=== PATIENT | male | born 1970 | race Caucasian/White ===

== ENCOUNTER 2017-11-29 11:17 | Emergency (ER) | payer BC ==
[2017-11-29 11:28] VITALS: TEMP 98.7
[2017-11-29] MEDS ORDERED: SODIUM CHLORIDE 0.9% 500 ML IV STA (11:52)
--- NOTE | 2017-11-29 11:55 | ED ---
General Adult HPI - General Chief complaint: Abdominal Pain Stated complaint: LOWER RT ABDOMINAL PAIN Time Seen by Provider: 11/29/17 11:25 Source: patient, RN notes reviewed Mode of arrival: ambulatory Limitations: no limitations - History of Present Illness Initial comments: This 47-year-old male who presents emergency Department complaining of right lower quadrant abdominal pain that started yesterday 4 PM. Patient states since then he has not eaten. Patient denies any nausea or vomiting patient denies any diarrhea. Patient denies any fever or chills. Patient states it hurts worse if he is up and walking around. Patient states bending over increases the pain but standing is about a 3 out of 10. Patient states pressing on the right lower quadrant also causes pain. Patient denies any dysuria hematuria urinary frequency. Patient denies any upper abdominal pain. Patient denies any difficulty breathing or shortness of breath. - Related Data Allergies Allergy/AdvReac Type Severity Reaction Status Date / Time No Known Allergies Allergy Verified 11/29/17 11:28 Review of Systems ROS Statement: Those systems with pertinent positive or pertinent negative responses have been documented in the HPI. ROS Other: All systems not noted in ROS Statement are negative. Past Medical History Additional Past Medical History / Comment(s): hernia History of Any Multi-Drug Resistant Organisms: None Reported Past Surgical History: Orthopedic Surgery Additional Past Surgical History / Comment(s): right knee scope Past Psychological History: No Psychological Hx Reported Smoking Status: Never smoker Past Alcohol Use History: None Reported Past Drug Use History: None Reported General Exam - General Exam Comments Initial Comments: GENERAL: Patient is well-developed and well-nourished. Patient is nontoxic and well- hydrated and is in mild distress. ENT: Neck is soft and supple. No significant lymphadenopathy is noted. Oropharynx is clear. Moist mucous membranes. Neck has full range of motion without eliciting any pain. EYES: The sclera were anicteric and conjunctiva were pink and moist. Extraocular movements were intact and pupils were equal round and reactive to light. Eyelids were unremarkable. PULMONARY: Unlabored respirations. Good breath sounds bilaterally. No audible rales rhonchi or wheezing was noted. CARDIOVASCULAR: There is a regular rate and rhythm without any murmurs gallops or rubs. ABDOMEN: Right lower quadrant abdominal pain SKIN: Skin is clear with no lesions or rashes and otherwise unremarkable. NEUROLOGIC: Patient is alert and oriented x3. Cranial nerves II through XII are grossly intact. Motor and sensory are also intact. Normal speech, volume and content. Symmetrical smile. MUSCULOSKELETAL: Normal extremities with adequate strength and full range of motion. No lower extremity swelling or edema. No calf tenderness. LYMPHATICS: No significant lymphadenopathy is noted PSYCHIATRIC: Normal psychiatric evaluation. Limitations: no limitations Course Vital Signs 11/29/17 11:24 Temperature 98.7 F Pulse Rate 82 Respiratory 18 Rate Blood Pressure 144/82 O2 Sat by Pulse 97 Oximetry Medical Decision Making - Medical Decision Making CAT scan of the abdomen showed ventral hernia no signs of incarceration no other abnormalities are noted. - Lab Data Result diagrams: 11/29/17 12:00 11/29/17 12:00 Lab Results 11/29/17 11/29/17 11/29/17 Range/Units 12:00 12:00 12:00 WBC 7.7 (3.8-10.6) k/uL RBC 5.10 (4.30-5.90) m/uL Hgb 14.5 (13.0-17.5) gm/dL Hct 44.8 (39.0-53.0) % MCV 87.8 (80.0-100.0) fL MCH 28.4 (25.0-35.0) pg MCHC 32.3 (31.0-37.0) g/dL RDW 13.0 (11.5-15.5) % Plt Count 274 (150-450) k/uL Neutrophils % 70 % Lymphocytes % 21 % Monocytes % 6 % Eosinophils % 1 % Basophils % 0 % Neutrophils # 5.5 (1.3-7.7) k/uL Lymphocytes # 1.6 (1.0-4.8) k/uL Monocytes # 0.4 (0-1.0) k/uL Eosinophils # 0.1 (0-0.7) k/uL Basophils # 0.0 (0-0.2) k/uL Sodium 141 (137-145) mmol/L Potassium 4.2 (3.5-5.1) mmol/L Chloride 107 (98-107) mmol/L Carbon Dioxide 24 (22-30) mmol/L Anion Gap 10 mmol/L BUN 14 (9-20) mg/dL Creatinine 0.71 (0.66-1.25) mg/dL Est GFR (CKD-EPI)AfAm >90 (>60 ml/min/1.73 sqM) Est GFR (CKD-EPI)NonAf >90 (>60 ml/min/1.73 sqM) Glucose 100 H (74-99) mg/dL Calcium 8.8 (8.4-10.2) mg/dL Total Bilirubin 1.1 (0.2-1.3) mg/dL AST 22 (17-59) U/L ALT 40 (21-72) U/L Alkaline Phosphatase 48 (38-126) U/L Total Protein 6.9 (6.3-8.2) g/dL Albumin 4.0 (3.5-5.0) g/dL Amylase 41 (30-110) U/L Lipase 52 (23-300) U/L Urine Color Yellow Urine Appearance Clear (Clear) Urine pH 5.5 (5.0-8.0) Ur Specific Onward 1.026 (1.001-1.035) Urine Protein Trace H (Negative) Urine Glucose (UA) Negative (Negative) Urine Ketones Negative (Negative) Urine Blood Negative (Negative) Urine Nitrite Negative (Negative) Urine Bilirubin Negative (Negative) Urine Urobilinogen <2.0 (<2.0) mg/dL Ur Leukocyte Esterase Negative (Negative) Disposition Clinical Impression: Abdominal pain Disposition: HOME SELF-CARE Instructions: Abdominal Pain (ED) Is patient prescribed a controlled substance at d/c from ED?: No Referrals: Osorio Cotto MD [Primary Care Provider] - 1-2 days Time of Disposition: 13:55
[2017-11-29 12:12] LABS: Appearance,Urine Clear (Clear); Basophils % (A) 0 %; Bilirubin,Urine Negative (Negative); Blood,Urine Negative (Negative); Color,Urine Yellow; Eosinophils # (A) 0.1 k/uL (0-0.7); Eosinophils % (A) 1 %; Glucose,Urine (UA) Negative (Negative); HCT 44.8 % (39.0-53.0); HGB 14.5 gm/dL (13.0-17.5); Ketones,Urine Negative (Negative); Leukocyte Esterase,Urine Negative (Negative); Lymphocytes # (A) 1.6 k/uL (1.0-4.8); Lymphocytes % (A) 21 %; MCH 28.4 pg (25.0-35.0); MCHC 32.3 g/dL (31.0-37.0); MCV 87.8 fL (80.0-100.0); Mean Platelet Volume 6.3; Monocytes # (A) 0.4 k/uL (0-1.0); Monocytes % (A) 6 %; Neutrophils # (A) 5.5 k/uL (1.3-7.7); Neutrophils % (A) 70 %; Nitrite,Urine Negative (Negative); PH, Urine 5.5 (5.0-8.0); Platelet Count 274 k/uL (150-450); Protein,Urine Trace (Negative); Specific Gravity,Urine 1.026 (1.001-1.035); Urobilinogen,Urine <2.0 mg/dL (<2.0); WBC 7.7 k/uL (3.8-10.6)
[2017-11-29 12:23] LABS: ALT 40 U/L (21-72); AST 22 U/L (17-59); Alkaline Phosphatase 48 U/L (38-126); Amylase 41 U/L (30-110); Anion Gap 10 mmol/L; Blood Urea Nitrogen 14 mg/dL (9-20); Calcium 8.8 mg/dL (8.4-10.2); Carbon Dioxide 24 mmol/L (22-30); Chloride 107 mmol/L (98-107); Glucose 100 mg/dL (74-99); Lipase 52 U/L (23-300); Potassium 4.2 mmol/L (3.5-5.1); Sodium 141 mmol/L (137-145); Total Bilirubin 1.1 mg/dL (0.2-1.3); Total Protein 6.9 g/dL (6.3-8.2)
--- NOTE | 2017-11-29 13:51 | CT ---
EXAMINATION TYPE: CT abdomen pelvis w con DATE OF EXAM: 11/29/2017 COMPARISON: None HISTORY: Pain CONTRAST: Isovue 300/100 ml. Contrast-enhanced CT of the abdomen and pelvis was performed. GI contrast also administered. FINDINGS: LUNG BASES-: No visible nodule. No infiltrate. LIVER/GB: No calcified gallstones. Is evidence of mild hepatic steatosis. No space occupying hepat ic lesion. Biliary tree is of normal caliber. PANCREAS: No inflammation. No distinct mass. SPLEEN: No splenic enlargement. No lesion seen. ADRENALS: No nodule. No thickening. KIDNEYS/BLADDER: No hydronephrosis. No nephrolithiasis. No distinct renal mass. Urinary bladder g rossly unremarkable. BOWEL: Normal appendix. Normal bowel caliber. No inflammation. GENITAL ORGANS: No gross abnormality. LYMPH NODES: No greater than 1cm abdominal or pelvic lymph nodes are appreciated. AORTA: No significant abnormality. OSSEOUS STRUCTURES: No significant abnormality is seen. OTHER: Fat-containing anterior abdominal wall hernia measuring 11.3 x 6.0 cm. IMPRESSION: 1. Fat-containing anterior abdominal wall hernia measuring 11.3 x 6.0 cm.
[2017-11-29 14:16] VITALS: BP 148/70; PULSE 66; RESP 16
== END 2017-11-29 14:16 | disposition home or self-care (01) ==
LOC: EC 11:17
DX: K43.9 Ventral hernia without obstruction or gangrene (principal)
CPT/HCPCS: 36415; 80053; 82150; 83690; 85025; 81003; 74177; 99284; 96360; Q9967

== ENCOUNTER → 2018-01-03 | Outpatient (CLI) | payer BC | END | disposition home or self-care (01) | LOC: LABPAT 12:46 | PROVIDERS: ATTEND Surgery Plastic and Reconstructive Surgery | DX: Z01.810 Encounter for preprocedural cardiovascular examination (principal) | CPT/HCPCS: 93005 ==

== ENCOUNTER → 2018-01-03 | Outpatient (CLI) | payer BC ==
[2018-01-03 14:41] LABS: HCT 44.2 % (39.0-53.0); HGB 14.6 gm/dL (13.0-17.5); MCH 29.5 pg (25.0-35.0); MCV 89.3 fL (80.0-100.0); Mean Platelet Volume 6.6; Platelet Count 284 k/uL (150-450); RBC 4.95 m/uL (4.30-5.90); RDW 13.2 % (11.5-15.5); WBC 6.1 k/uL (3.8-10.6)
[2018-01-03 14:42] LABS: Appearance,Urine Clear (Clear); Bilirubin,Urine Negative (Negative); Blood,Urine Negative (Negative); Color,Urine Yellow; Glucose,Urine (UA) Negative (Negative); Ketones,Urine Negative (Negative); Leukocyte Esterase,Urine Negative (Negative); Nitrite,Urine Negative (Negative); PH, Urine 6.5 (5.0-8.0); Protein,Urine Negative (Negative); Specific Gravity,Urine 1.013 (1.001-1.035); Urobilinogen,Urine <2.0 mg/dL (<2.0)
[2018-01-03 14:54] LABS: ALT 37 U/L (21-72); AST 16 U/L (17-59); Albumin 4.1 g/dL (3.5-5.0); Alkaline Phosphatase 44 U/L (38-126); Anion Gap 10 mmol/L; Blood Urea Nitrogen 11 mg/dL (9-20); Carbon Dioxide 26 mmol/L (22-30); Chloride 104 mmol/L (98-107); Cholesterol 157 mg/dL (<200); Glucose 93 mg/dL (74-99); HDL Cholesterol 42 mg/dL (40-60); LDL Cholesterol,Calculated 84 mg/dL (0-99); Potassium 4.1 mmol/L (3.5-5.1); Sodium 140 mmol/L (137-145); Total Bilirubin 1.3 mg/dL (0.2-1.3); Triglycerides 155 mg/dL (<150)
== END | disposition home or self-care (01) ==
LOC: LABWHC1 12:50
PROVIDERS: ATTEND Family Medicine
DX: Z00.00 Encounter for general adult medical examination without abnormal findings (principal)
CPT/HCPCS: 36415; 80053; 80061; 81003; 85027

== ENCOUNTER → 2018-02-27 | Outpatient (CLI) | payer BC ==
[2018-02-27 09:46] LABS: HCT 46.9 % (39.0-53.0); HGB 15.2 gm/dL (13.0-17.5); MCH 28.6 pg (25.0-35.0); MCHC 32.5 g/dL (31.0-37.0); Platelet Count 280 k/uL (150-450); RBC 5.33 m/uL (4.30-5.90); RDW 13.3 % (11.5-15.5); WBC 6.3 k/uL (3.8-10.6)
== END | disposition home or self-care (01) ==
LOC: LABPAT 08:26
PROVIDERS: ATTEND Anesthesiology
DX: Z01.812 Encounter for preprocedural laboratory examination (principal); K43.2 Incisional hernia without obstruction or gangrene
CPT/HCPCS: 36415; 85027

== ENCOUNTER → 2018-03-01 | Day surgery (SDC) | payer BC ==
[2018-02-26 15:16] VITALS: BMI 42.0
[~2018-03-01] MED LIST: BUPIVACAIN-EPI 0.25%-1:200,000 30 ML VIAL SQ ONE; DEXAMETHASONE SOD PHOSPHATE 10 MG/ML 1 ML VIAL IV ONE; GLYCOPYRROLATE 0.2 MG/ML 2 ML VIAL ONE; HEPARIN SODIUM,PORCINE 5,000 UNIT/ML 1 ML VIAL SQ ONE; HYDROcodone/APAP 7.5-325MG 1 EACH TAB PO ONE; HYDROmorphone (PF) 1 MG/ML ONE; KETOROLAC 30 MG/ML 1 ML VIAL ONE; LACTATED RINGERS 1,000 ML IV ONE; LIDOCAINE 1% 20 ML VIAL (10MG/ML) FOR IV START INTRADERMA PRN; LIDOCAINE 1% INJ 10MG/ML (20 ML MDV) ONE; MIDAZOLAM 2 MG/2 ML VIAL IV PRN; MIDAZOLAM 2 MG/2 ML VIAL ONE; NEOSTIGMINE 1 MG/ML 10 ML VIAL ONE; ONDANSETRON 4 MG/2 ML VIAL IVP ONE; PROPOFOL 10 MG/ML 20 ML VIAL IV ONE; ROCURONIUM BROMIDE 10 MG/ML 10 ML VIAL IV ONE; ROPIVACAINE 5 MG/ML 30 ML VIAL ONE; SCOPOLAMINE 1.5MG/72HR PATCH TRANSDERM ONE; SUCCINYLCHOLINE CHLORIDE VIAL 200 MG/10 ML VIAL IV ONE; fentaNYL (PF) 50 MCG/ML 2 ML AMP ONE
[2018-03-01 14:30] VITALS: RESP 16
--- NOTE | 2018-03-01 14:59 | P.GSHP ---
History of Present Illness H&P Date: 03/01/18 CHIEF COMPLAINT: Ventral hernia HISTORY OF PRESENT ILLNESS: The patient is a 47-year-old male who presents with a history of swelling and pain along the abdomen from a hernia. Now he presents for surgical intervention. PAST MEDICAL HISTORY: Please see list. PAST SURGICAL HISTORY: Please see list. MEDICATIONS: Please see list. ALLERGIES: Please see list. SOCIAL HISTORY: No illicit drug use FAMILY HISTORY: No reports of Crohn disease or ulcerative colitis. REVIEW OF ORGAN SYSTEMS: CONSTITUTIONAL: No reports of fevers or chills. No reports of weight loss despite prior attempts. GI: Denies any blood in stools or constipation. PHYSICAL EXAM: VITAL SIGNS: Stable GENERAL: Well-developed pleasant male in no acute distress. HEENT: No scleral icterus. Extraocular movements grossly intact. Moist buccal mucosa. NECK: Supple without lymphadenopathy. CHEST: Unlabored respirations. Equal bilateral excursions. CARDIOVASCULAR: Regular rate and rhythm. Distal 2+ pulses. ABDOMEN: Soft, nondistended. Palpable defect of the abdomen. No peritoneal signs. MUSCULOSKELETAL: No clubbing, cyanosis, or edema. ASSESSMENT: 1. Ventral hernia PLAN: 1. Recommend proceeding with robotic ventral hernia repair with mesh. 2. Benefits and risks of surgical intervention was discussed including possibility of open technique. 3. DVT prophylaxis. 4. Antibiotic prophylaxis. Past Medical History Past Medical History: Sleep Apnea/CPAP/BIPAP Additional Past Medical History / Comment(s): hernia History of Any Multi-Drug Resistant Organisms: None Reported Past Surgical History: Orthopedic Surgery Additional Past Surgical History / Comment(s): right knee scope Past Anesthesia/Blood Transfusion Reactions: No Reported Reaction Additional Past Anesthesia/Blood Transfusion Reaction / Comment(s): no hx blood transfusion Smoking Status: Never smoker - Past Family History Mother Family Medical History: No Reported History Father Family Medical History: Cancer Additional Family Medical History / Comment(s): colon CA,. paternal grandfather CA Medications and Allergies Home Medications Medication Instructions Recorded Confirmed Type No Known Home Medications 02/26/18 03/01/18 History Allergies Allergy/AdvReac Type Severity Reaction Status Date / Time No Known Allergies Allergy Verified 03/01/18 14:30 Surgical - Exam Vital Signs Temp Pulse Resp BP Pulse Ox 97.6 F 70 16 129/63 99 03/01/18 14:29 03/01/18 14:29 03/01/18 14:29 03/01/18 14:29 03/01/18 14:29
[2018-03-01] MEDS: LACTATED RINGERS 1,000 ML IV SCH ×2 (15:20→15:44)
--- NOTE | 2018-03-01 16:28 | P.ONQ ---
Anesthesiology Proc Note - PNB - Peripheral Nerve Block Performed Bilateral Rectus Abdominis Single Time Out Performed: Yes (152) Procedure Start Time: 15: Procedure Stop Time: 15:30 Indication: Acute Post-Operative Pain, Dx/Pain Location (Abdominal Pain), Requested by physician Sedation Type: Sedate with meaningful contact maintained Preparation: Sterile Prep Position: Supine Catheter: None Needle Types: On-Q Needle Size: 100mm (4") Needle Gauge: 21 Technique: Ultrasound Injectate: 0.5% Ropivacaine (see comment for volume) (15ml each side) Blood Aspirated: No Pain Paresthesia on Injection Noted: No Resistance on Injection: Normal Events: Uneventful and Well Tolerated
--- NOTE | 2018-03-01 19:17 | P.OP ---
Date of Procedure: 03/01/18 Description of Procedure: SURGEON: NICHOL WOO MD PREOPERATIVE DIAGNOSES: 1. Incarcerated initial ventral hernia, over 8 cm 2. Morbid obesity due to excess calories, BMI 42.0 3. Obstructive sleep apnea POSTOPERATIVE DIAGNOSES: 1. Incarcerated initial ventral hernia, over 8 cm 2. Morbid obesity due to excess calories, BMI 42.0 3. Obstructive sleep apnea OPERATION: 1. Robotic-assisted da Jose Xi laparoscopic omentectomy 2. Robotic-assisted da Jose Xi laparoscopic repair of 4 cm initial incarcerated ventral hernia mesh, ventralight ST mesh 11.4 cm Anesthesia: GETA, regional, local Estimated Blood Loss (ml): 5 Pathology: other (omentum) Condition: stable Disposition: same day COMPLICATIONS: None. INDICATIONS: The patient is a 47-year-old male who presents with moderate pain and swelling of the abdomen at the umbilicus. He is gone to the emergency room for severe abdominal pain with findings consistent with incarcerated umbilical ventral hernia. Surgical intervention with laparoscopic versus robotic and open techniques were reviewed. Placement of mesh was also reviewed. Benefits and risks were thoroughly described. Informed consent was obtained. DESCRIPTION OF PROCEDURE: The patient was brought into the operating room and laid in supine position. After general induction, the abdomen had been prepped and draped in standard sterile fashion. Ioban draping was also placed. Prior to incision, a timeout protocol was confirmed with surgical team regarding the patient's name including procedures to be performed. The robot was primed prior to the procedure. A field block using local anesthetic was placed along hernia site including the proposed port sites. Initial incision was made with an #11 blade along the left upper quadrant. A 0 degree 5 mm laparoscopic trocar entry was performed and insufflated. Diagnostic laparoscopy demonstrated large omental incarceration at the ventral hernia involving the umbilicus. An 8 mm port was placed along the right upper quadrant under direct localization. The 5- mm port was exchanged for an 8 mm robotic port. Placements of the ports were 15 cm from the target anatomy and approximately 10 cm apart. The [employer] Xi robot was previously primed, prepped and draped then docked along the left side of the patient. I then sat at the robot [employer] Xi console where working arms of the robot including Bovie cautery connected to robotic scissors, vessel sealer, needle hazardous materials tanker driver, and graspers placed by the administrative support assistant. Extensive dissection was performed to reduce the incarcerated greater omentum of the umbilical ventral hernia. Partial omentectomy was performed with complete reduction of the incarcerated hernia site. Subcutaneous pocket was at least 8-10 cm within the skin. The fascial defect size was over 4 cm. The fascial defect was addressed using #1 Stratafix and oversewed using fascial imbrication 3. A 12 mm port was exchanged along the left upper quadrant for placement of the mesh and for sutures. Next, ventralight ST mesh 11.4 cm was placed with the rough side towards the abdominal wall. 2-0 VLOC 12 inch sutures were used to fixate the mesh. A final endoscopic imaging was obtained. All instruments and pneumoperitoneum were evacuated from the abdominal cavity. The da Jose Xi robot was undocked from the patient. I re-scrubbed into the case for closure of incisions. The fascia of the 12-mm port was probed and less than 8-mm in size. The incisions were reapproximated using 4-0 Monocryl in an interrupted subcuticular fashion. Liquid glue was applied to the skin after cleansing the skin with normal saline and dilute hydrogen peroxide. An abdominal binder was placed. At the end of the procedure, needle, sponge, and instrument count had been verified correct by surgical supplies sterilizer. The patient was taken to the postanesthesia care unit in stable condition. Operative Findings: 1. Omentum incarcerated in 4 cm fascial defect with 8-cm subcutaneous pocket involving omentum 2. Right indirect inguinal hernia, 2 cm 3. Port site at left upper quadrant exchanged for 12-mm port for removal of specimen 4. Sukumar Gold closure of fascial defect of left upper quadrant port 5. Console time 67 minutes Plan - Discharge Summary Discharge Rx Participant: No New Discharge Prescriptions: New HYDROcodone/APAP 7.5-325MG [[place] 7.5-325] 1 tab PO Q4H PRN 3 Days #18 tab PRN Reason: Pain Ibuprofen [Motrin] 600 mg PO Q8HR PRN #30 tab PRN Reason: Pain HYDROcodone/APAP 7.5-325MG [[place] 7.5-325] 1 tab PO Q4H PRN 3 Days #18 tab PRN Reason: Pain Discharge Medication List HYDROcodone/APAP 7.5-325MG [[place] 7.5-325] 1 tab PO Q4H PRN 3 Days #18 tab 03/01 [Rx] Ibuprofen [Motrin] 600 mg PO Q8HR PRN #30 tab 03/01/18 [Rx] HYDROcodone/APAP 7.5-325MG [[place] 7.5-325] 1 tab PO Q4H PRN 3 Days #18 tab 03/06 [Rx] Follow up Appointment(s)/Referral(s): Nichol Woo MD [STAFF PHYSICIAN] - 03/06/18 Patient Instructions/Handouts: *Surgery [facility] - (Anesthesia) Discharge Instructions Outpatient Surgery, Laparoscopic Herniorrhaphy (IP), Umbilical Hernia (DC), Abdominal Binder (DC) Activity/Diet/Wound Care/Special Instructions: No lifting over 4 pounds in 4 weeks. May shower. NO BATHTUB SOAKS. Keep dressing at belly button on until seen by surgeon. WEAR ABDOMINAL BINDER ON AT ALL TIMES EXCEPT FOR SHOWERING. Discharge Disposition: HOME SELF-CARE
[2018-03-01 19:29] VITALS: TEMP 98
[2018-03-01] MEDS: HYDROmorphone 1 MG/ML 1 ML SYRINGE IVP PRN ×2 (20:19→20:25)
[2018-03-01 22:20] VITALS: BP 129/81; PULSE 90
== END | disposition home or self-care (01) ==
LOC: OR 13:25
PROVIDERS: ATTEND Surgery Plastic and Reconstructive Surgery
DX: K43.6 Other and unspecified ventral hernia with obstruction, without gangrene (principal); K40.90 Unilateral inguinal hernia, without obstruction or gangrene, not specified as recurrent; E66.01 Morbid (severe) obesity due to excess calories; G47.33 Obstructive sleep apnea (adult) (pediatric); R06.09 Other forms of dyspnea; I45.10 Unspecified right bundle-branch block; Z99.89 Dependence on other enabling machines and devices; Z68.41 Body mass index [BMI] 40.0-44.9, adult
CPT/HCPCS: 49653; 64488; 88305; C1781; J2250; J0330; J1644; J1100; J2710; J2405; J2001; J3010; J1885; J1170; J2795; J2704

== ENCOUNTER 2020-08-24 01:19 | Emergency (ER) | payer BC ==
[2020-08-24 01:30] VITALS: TEMP 97.9
[2020-08-24] MEDS ORDERED: METOPROLOL TARTRATE 5 MG/5 ML VIAL IVP STA (01:34)
[2020-08-24] MEDS ORDERED: SODIUM CHLORIDE 0.9% 1,000 ML IV STA (01:34)
[2020-08-24] MEDS ORDERED: DILTIAZEM 5 MG/ML 5 ML VIAL IVP STA (01:34)
--- NOTE | 2020-08-24 01:35 | ED ---
SOB HPI - General Chief Complaint: Shortness of Breath Stated Complaint: High heart rate Time Seen by Provider: 08/24/20 01:32 Source: patient, family Mode of arrival: ambulatory Limitations: no limitations - Related Data Previous Rx's Medication Instructions Recorded HYDROcodone/APAP 7.5-325MG [[place] 1 tab PO Q4H PRN 3 Days #18 tab 03/01/18 7.5-325] Ibuprofen [Motrin] 600 mg PO Q8HR PRN #30 tab 03/01/18 HYDROcodone/APAP 7.5-325MG [[place] 1 tab PO Q4H PRN 3 Days #18 tab 03/06/18 7.5-325] Cyclobenzaprine [Flexeril] 10 mg PO TID #30 tab 03/15/18 Allergies Allergy/AdvReac Type Severity Reaction Status Date / Time No Known Allergies Allergy Verified 03/01/18 14:30 Review of Systems ROS Statement: Those systems with pertinent positive or pertinent negative responses have been documented in the HPI. ROS Other: All systems not noted in ROS Statement are negative. Past Medical History Past Medical History: Sleep Apnea/CPAP/BIPAP Additional Past Medical History / Comment(s): hernia History of Any Multi-Drug Resistant Organisms: None Reported Past Surgical History: Orthopedic Surgery Additional Past Surgical History / Comment(s): right knee scope Past Anesthesia/Blood Transfusion Reactions: No Reported Reaction Additional Past Anesthesia/Blood Transfusion Reaction / Comment(s): no hx blood transfusion Past Psychological History: No Psychological Hx Reported Smoking Status: Never smoker Past Alcohol Use History: Occasional Past Drug Use History: None Reported - Past Family History Mother Family Medical History: No Reported History Father Family Medical History: Cancer Additional Family Medical History / Comment(s): colon CA,. paternal grandfather CA General Exam Limitations: no limitations Course Vital Signs 08/24/20 08/24/20 08/24/20 01:26 01:45 02:01 Temperature 97.9 F Pulse Rate 162 H 165 H 141 H Respiratory 20 18 16 Rate Blood Pressure 122/89 128/99 145/88 O2 Sat by Pulse 97 99 98 Oximetry 08/24/20 08/24/20 02:05 02:35 Temperature Pulse Rate 77 74 Respiratory 16 14 Rate Blood Pressure 132/81 132/81 O2 Sat by Pulse 99 98 Oximetry Medical Decision Making - Lab Data Result diagrams: 08/24/20 01:56 08/24/20 01:56 Lab Results 08/24/20 08/24/20 08/24/20 Range/Units 01:42 01:56 01:56 WBC 6.5 (3.8-10.6) k/uL RBC 4.91 (4.30-5.90) m/uL Hgb 14.6 (13.0-17.5) gm/dL Hct 43.2 (39.0-53.0) % MCV 87.9 (80.0-100.0) fL MCH 29.7 (25.0-35.0) pg MCHC 33.8 (31.0-37.0) g/dL RDW 12.9 (11.5-15.5) % Plt Count 279 (150-450) k/uL MPV 6.8 Neutrophils % 44 % Lymphocytes % 45 % Monocytes % 6 % Eosinophils % 2 % Basophils % 1 % Neutrophils # 2.9 (1.3-7.7) k/uL Lymphocytes # 2.9 (1.0-4.8) k/uL Monocytes # 0.4 (0-1.0) k/uL Eosinophils # 0.1 (0-0.7) k/uL Basophils # 0.0 (0-0.2) k/uL PT 9.7 (9.0-12.0) sec INR 0.9 (<1.2) APTT 22.4 (22.0-30.0) sec D-Dimer 0.40 (<0.60) mg/L FEU Sodium (137-145) mmol/L Potassium (3.5-5.1) mmol/L Chloride (98-107) mmol/L Carbon Dioxide (22-30) mmol/L Anion Gap mmol/L BUN (9-20) mg/dL Creatinine (0.66-1.25) mg/dL Est GFR (CKD-EPI)AfAm (>60 ml/min/1.73 sqM) Est GFR (CKD-EPI)NonAf (>60 ml/min/1.73 sqM) Glucose (74-99) mg/dL POC Glucose (mg/dL) 161 H (75-99) mg/dL POC Glu Shop Mechanic Helper ID Vikram Bradley Calcium (8.4-10.2) mg/dL Phosphorus (2.5-4.5) mg/dL Magnesium (1.6-2.3) mg/dL Total Bilirubin (0.2-1.3) mg/dL AST (17-59) U/L ALT (4-49) U/L Alkaline Phosphatase (38-126) U/L Creatine Kinase (55-170) U/L Troponin I (0.000-0.034) ng/mL NT-Pro-B Natriuret Pep pg/mL Total Protein (6.3-8.2) g/dL Albumin (3.5-5.0) g/dL TSH (0.465-4.680) mIU/L 08/24/20 08/24/20 08/24/20 Range/Units 01:56 01:56 01:56 WBC (3.8-10.6) k/uL RBC (4.30-5.90) m/uL Hgb (13.0-17.5) gm/dL Hct (39.0-53.0) % MCV (80.0-100.0) fL MCH (25.0-35.0) pg MCHC (31.0-37.0) g/dL RDW (11.5-15.5) % Plt Count (150-450) k/uL MPV Neutrophils % % Lymphocytes % % Monocytes % % Eosinophils % % Basophils % % Neutrophils # (1.3-7.7) k/uL Lymphocytes # (1.0-4.8) k/uL Monocytes # (0-1.0) k/uL Eosinophils # (0-0.7) k/uL Basophils # (0-0.2) k/uL PT (9.0-12.0) sec INR (<1.2) APTT (22.0-30.0) sec D-Dimer (<0.60) mg/L FEU Sodium 140 (137-145) mmol/L Potassium 3.8 (3.5-5.1) mmol/L Chloride 108 H (98-107) mmol/L Carbon Dioxide 25 (22-30) mmol/L Anion Gap 7 mmol/L BUN 16 (9-20) mg/dL Creatinine 0.76 (0.66-1.25) mg/dL Est GFR (CKD-EPI)AfAm >90 (>60 ml/min/1.73 sqM) Est GFR (CKD-EPI)NonAf >90 (>60 ml/min/1.73 sqM) Glucose 157 H (74-99) mg/dL POC Glucose (mg/dL) (75-99) mg/dL POC Glu Shop Mechanic Helper ID Calcium 8.9 (8.4-10.2) mg/dL Phosphorus 3.7 (2.5-4.5) mg/dL Magnesium 2.0 (1.6-2.3) mg/dL Total Bilirubin 0.6 (0.2-1.3) mg/dL AST 24 (17-59) U/L ALT 30 (4-49) U/L Alkaline Phosphatase 63 (38-126) U/L Creatine Kinase 92 (55-170) U/L Troponin I <0.012 (0.000-0.034) ng/mL NT-Pro-B Natriuret Pep 64 pg/mL Total Protein 6.7 (6.3-8.2) g/dL Albumin 3.9 (3.5-5.0) g/dL TSH 2.610 (0.465-4.680) mIU/L - EKG Data -: EKG Interpreted by Me (EKG is SVT 164 QRS 112 QTC 488) EKG shows normal: sinus rhythm (EKG shows sinus rhythm 74 [place] 152 QRS 112 QTc 468) Disposition Clinical Impression: SVT (supraventricular tachycardia), Tachycardia Disposition: HOME SELF-CARE Condition: Good Instructions (If sedation given, give patient instructions): Supraventricular Tachycardia (ED), Tachycardia (ED) Is patient prescribed a controlled substance at d/c from ED?: No Referrals: Osorio Cotto MD [Primary Care Provider] - 1-2 days
[2020-08-24 01:46] LABS: Glucose,Whole Blood 161 mg/dL (75-99)
[2020-08-24 02:10] LABS: Basophils % (A) 1 %; Eosinophils # (A) 0.1 k/uL (0-0.7); Eosinophils % (A) 2 %; HCT 43.2 % (39.0-53.0); HGB 14.6 gm/dL (13.0-17.5); Lymphocytes # (A) 2.9 k/uL (1.0-4.8); Lymphocytes % (A) 45 %; MCH 29.7 pg (25.0-35.0); MCHC 33.8 g/dL (31.0-37.0); MCV 87.9 fL (80.0-100.0); Mean Platelet Volume 6.8; Monocytes # (A) 0.4 k/uL (0-1.0); Monocytes % (A) 6 %; Neutrophils # (A) 2.9 k/uL (1.3-7.7); Neutrophils % (A) 44 %; Platelet Count 279 k/uL (150-450); RBC 4.91 m/uL (4.30-5.90); RDW 12.9 % (11.5-15.5); WBC 6.5 k/uL (3.8-10.6)
[2020-08-24 02:20] LABS: ALT 30 U/L (4-49); AST 24 U/L (17-59); African American GFR (CKD) >90 (>60 ml/min/1.73 sqM); Albumin 3.9 g/dL (3.5-5.0); Alkaline Phosphatase 63 U/L (38-126); Anion Gap 7 mmol/L; Blood Urea Nitrogen 16 mg/dL (9-20); Calcium 8.9 mg/dL (8.4-10.2); Carbon Dioxide 25 mmol/L (22-30); Chloride 108 mmol/L (98-107); Creatine Kinase 92 U/L (55-170); Glucose 157 mg/dL (74-99); Non-African American GFR(CKD) >90 (>60 ml/min/1.73 sqM); Phosphorus 3.7 mg/dL (2.5-4.5); Potassium 3.8 mmol/L (3.5-5.1); Sodium 140 mmol/L (137-145); Total Bilirubin 0.6 mg/dL (0.2-1.3); Total Protein 6.7 g/dL (6.3-8.2)
[2020-08-24 02:34] LABS: D-Dimer 0.4 mg/L FEU (<0.60); INR 0.9 (<1.2); Partial Thromboplastin Time 22.4 sec (22.0-30.0); Prothrombin Time 9.7 sec (9.0-12.0)
[2020-08-24 03:30] VITALS: BP 116/73; RESP 15
[2020-08-24 03:53] VITALS: PULSE 168
== END 2020-08-24 03:28 | disposition home or self-care (01) ==
LOC: EC 01:19
DX: I47.1 Supraventricular tachycardia (principal); G47.30 Sleep apnea, unspecified
CPT/HCPCS: 36415; 80053; 82550; 83735; 83880; 84100; 84443; 84484; 85025; 85379; 85610; 85730; 93005; 96361; 96374; 96375; 99285

== ENCOUNTER → 2020-09-30 | Outpatient (CLI) | payer BC ==
--- NOTE | 2020-09-30 23:00 | CONS ---
CONSULTATION DATE OF SERVICE: 09/30/2020. This 49-year-old gentleman has been evaluated in the sleep center for possible obstructive sleep apnea-hypopnea syndrome. HISTORY OF PRESENT ILLNESS/SLEEP WAKE EVALUATION: Patient had sleep study about 20 years ago in another institution but because he did not fall asleep at that time during the test, test was not conclusive. SLEEP SCHEDULE: Presently, his sleep schedule from 1 a.m. to 6/ 6:30 a.m. on weekdays and from 2 a.m. to 8, 8:30 a.m. on weekends. FALLING ASLEEP: Sometimes he has problems with falling asleep, has TV set in bedroom. DURING SLEEP: Sleeps only on the side or in the chair. He cannot sleep on the bed, feels uncomfortable. He says a loud snoring and witnessed episodes of stopped breathing during sleep. He wakes up from sleep with panic attacks, gasping for air. No history of hypnagogic hallucinations, sleep paralysis or cataplexy. [place] Sleepiness Scale is in very high range of 18. DURING THE DAY/SLEEP WAKE EVALUATION: The patient may take nap around 4:00 pm. PAST MEDICAL HISTORY: Positive for episodes of probably supraventricular tachycardia. PAST SURGICAL HISTORY: Right knee surgery, abdominal hernia repair. MEDICATIONS: Advil on a p.r.n. basis. SOCIAL HISTORY: Smoking positive history of smoking, quit 2 years ago. Alcohol consumption occasional. FAMILY HISTORY: Positive for heart problems, stroke and arthritis. REVIEW OF SYSTEMS: Loud snoring, awakenings from sleep. PHYSICAL EXAMINATION: GENERAL: gentleman without distress. BP 129/88, HR 81, RR 15, height 6 feet 1/4 inch, weight 332.2 pounds with a body mass index of 44.7, temperature 97.5, oxygen saturation at room air 96%. HEENT: Oropharynx extremely low position of soft palate. Mallampati 4. NECK: Supple, no JVD. Thyroid is not palpable. LUNGS: Clear to percussion and to auscultation. Good air exchange. No wheezing or rhonchi. HEART: S1, S2 regular. No murmurs, gallops, or rubs. ABDOMEN: Obese. Soft and nontender. Bowel sounds are present. No organomegaly appreciated. EXTREMITIES: No clubbing or cyanosis. HEMMING AND TACKING MACHINE OPERATOR: Awake, alert, and oriented X3. Cranial nerves 2 to 7 intact. There is no fasciculation or atrophy. noted. No focal deficits observed. IMPRESSION: 1. Loud snoring, episodes of stopped breathing during sleep, extremely low position of soft palate, Mallampati 4, sleepiness, obstructive sleep apnea-hypopnea syndrome. 2. Significantly high [place] Sleepiness Scale dictate necessity to include hypersomnia and narcolepsy in differential diagnosis. 3. Morbid obesity, BMI 44.7. 4. History of cardiac arrhythmia, possibly supraventricular tachycardia by history. 5. Status post right knee surgery. 6. Status post inguinal hernia repair. PLAN: 1. Home sleep apnea test to check patient breathing during sleep. 2. CPAP/BiPAP titration if sleep study confirms obstructive sleep apnea-hypopnea syndrome. 3. Preferable position during sleep on the side. 4. No driving if patient feels any sleepiness. 5. I will see patient for follow up visit to explain results of testing and following plan. Thank you very much for referring this patient for consultation. Sincerely, Darrian Campos MD, PhD, FAASM Diplomat of [place] [employer] [place] [employer] Certified Nurse Practitioner of [facility] [place] MMODL / IJN: [id number] /
== END ==
LOC: SLEEP 15:20
PROVIDERS: ATTEND Internal Medicine
DX: G47.33 Obstructive sleep apnea (adult) (pediatric) (principal); E66.01 Morbid (severe) obesity due to excess calories; Z68.41 Body mass index [BMI] 40.0-44.9, adult; Z98.890 Other specified postprocedural states; Z86.79 Personal history of other diseases of the circulatory system; Z87.891 Personal history of nicotine dependence
CPT/HCPCS: 99211

== ENCOUNTER 2021-06-16 17:29 | Emergency (ER) | payer BC ==
[2021-06-16 18:30] VITALS: BP 158/91; PULSE 78; RESP 18; TEMP 98.2
--- NOTE | 2021-06-16 18:58 | ED ---
Head Injury HPI - General Chief complaint: Head Injury Stated complaint: Fall, Head Injury, Momentary loss of consciousness Time Seen by Provider: 06/16/21 18:34 Source: patient, RN notes reviewed Mode of arrival: ambulatory - History of Present Illness Initial comments: This is a pleasant 50-year-old male with a history of sleep apnea. Patient presents to the emergency department complaining of right-sided jaw pain near the TMJ. Patient states he slipped on ice at 6:30 AM this morning and struck the back of his head. He was momentarily dazed but did not lose consciousness. He recalls the entire event. No amnesia. Patient has had no nausea or vomiting. Patient states that he was dazed momentarily but the symptoms resolved rather quickly. He has no headache. However patient is complaining of pain to the right TMJ which is exacerbated when he goes to bite down. He states this is quite a bit of discomfort. He denies any other injuries. No blood th inners. No headache, no fever or chills, no changes in vision or hearing, no sore throat or difficulty with speech, no neck pain, no chest pain or shortness of breath, no abdominal pain, no nausea or vomiting, no changes in urination or bowel movements, no numbness or tingling, no gait disturbance, no extremity pain, no skin rashes or lesions. Patient has no history of blood dyscrasias. Does not take daily aspirin. - Related Data Previous Rx's Medication Instructions Recorded HYDROcodone/APAP 7.5-325MG [[place] 1 tab PO Q4H PRN 3 Days #18 tab 03/01/18 7.5-325] Ibuprofen [Motrin] 600 mg PO Q8HR PRN #30 tab 03/01/18 HYDROcodone/APAP 7.5-325MG [[place] 1 tab PO Q4H PRN 3 Days #18 tab 03/06/18 7.5-325] Cyclobenzaprine [Flexeril] 10 mg PO TID #30 tab 03/15/18 Allergies/Adverse reactions: Allergies Allergy/AdvReac Type Severity Reaction Status Date / Time No Known Allergies Allergy Verified 06/16/21 18:29 Review of Systems ROS Statement: Those systems with pertinent positive or pertinent negative responses have been documented in the HPI. ROS Other: All systems not noted in ROS Statement are negative. Past Medical History Past Medical History: Sleep Apnea/CPAP/BIPAP Additional Past Medical History / Comment(s): hernia History of Any Multi-Drug Resistant Organisms: None Reported Past Surgical History: Hernia Repair, Orthopedic Surgery Additional Past Surgical History / Comment(s): right knee scope Past Anesthesia/Blood Transfusion Reactions: No Reported Reaction Additional Past Anesthesia/Blood Transfusion Reaction / Comment(s): no hx blood transfusion Past Psychological History: No Psychological Hx Reported Smoking Status: Never smoker Past Alcohol Use History: Occasional Past Drug Use History: None Reported - Past Family History Mother Family Medical History: No Reported History Father Family Medical History: Cancer Additional Family Medical History / Comment(s): colon CA,. paternal grandfather CA General Exam - General Exam Comments Initial Comments: Healthy-appearing 50-year-old male who does have some obesity. In no distress. Cranial nerves II through XII are intact. Patient is alert and oriented 4. Does not appear to be ill or toxic. [place] Coma Scale is 15. Limitations: no limitations General appearance: alert, in no apparent distress Head exam: Present: other (Superficial abrasion noted over the occipital region. No tenderness. No step-off. No crepitus. Head is normocephalic atraumatic other than the right TMJ--which is described below) Eye exam: Present: normal appearance, PERRL, EOMI. Absent: scleral icterus, conjunctival injection, periorbital swelling ENT exam: Present: normal oropharynx, mucous membranes moist, normal external ear exam, other (Patient has tenderness to the right temporomandibular joint area. No crepitus. Able to open his jaw fully. However biting down with mastication causes increased pain to the area. No evidence of dental injury. No evidence of intraoral injury. Airway is patent.). Absent: mucous membranes dry, TM's normal bilaterally Neck exam: Present: normal inspection, full ROM. Absent: tenderness, meningismus, lymphadenopathy Respiratory exam: Present: normal lung sounds bilaterally. Absent: respiratory distress, wheezes, rales, rhonchi, stridor Cardiovascular Exam: Present: regular rate, normal rhythm, normal heart sounds. Absent: systolic murmur, diastolic murmur, rubs, gallop, clicks GI/Abdominal exam: Present: soft, normal bowel sounds. Absent: distended, tenderness, guarding, rebound, rigid Extremities exam: Present: normal inspection, full ROM, normal capillary refill. Absent: tenderness, pedal edema, joint swelling, calf tenderness Back exam: Present: normal inspection Neurological exam: Present: alert, oriented X3, CN II-XII intact, normal gait. Absent: altered, abnormal gait, motor sensory deficit Expanded Patient oriented to: Present: person, place, time Speech: Present: fluid speech Cranial nerves: EOM's Intact: Normal, Gag Reflex: Normal, Tongue Deviation: Normal, Nystagmus: Normal, Facial Sensation: Normal, Facial Palsy with Forehead Movement: Normal, Facial Palsy without Forehead Movement: Normal Cerebellar function: Finger to Nose: Normal, Romberg: Normal Motor strength exam: RUE: 5, LUE: 5, RLE: 5, LLE: 5 Eye Response: (4) open spontaneously Motor Response: (6) obeys commands Verbal Response: (5) oriented [place] Total: 15 Psychiatric exam: Present: normal affect, normal mood Skin exam: Present: warm, dry, intact, normal color. Absent: rash Course Vital Signs 06/16/21 18:23 Temperature 98.2 F Pulse Rate 78 Respiratory 18 Rate Blood Pressure 158/91 O2 Sat by Pulse 97 Oximetry Medical Decision Making - Medical Decision Making Computed tomography scan of the brain and cervical spine were cleared through the use of [place] CT results. However, patient does have tenderness to the right TMJ area. Will order a computed tomography scan to delineate fracture to this area. Suspect this is soft tissue related. Patient likely clenched down during the fall. 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 Patient was told to return to the ER for any signs or symptoms worsen. Told to return immediately if any other problems arise. All questions answered. Treatment plan discussed. Patient in agreement Every effort has been made to ensure accuracy of this dictation. However, due to the limitations of electronic medical records and dictation devices, errors in charting still occur. - Radiology Data Radiology results: report reviewed, image reviewed Disposition Clinical Impression: Closed head injury, Contusion of jaw, Sprain and strain of temporomandibular joint, Contusion of occipital region of scalp Disposition: HOME SELF-CARE Instructions (If sedation given, give patient instructions): Concussion (ED) Additional Instructions: Refrain from any strenuous activity for 1 week. Call and make an appointment with your regular physician for recheck. Take [id number] acetaminophen and/or ibuprofen for pain control. Is patient prescribed a controlled substance at d/c from ED?: No Referrals: Osorio Cotto MD [Primary Care Provider] - 06/18/21 Time of Disposition: 19:49
--- NOTE | 2021-06-16 19:24 | CT ---
EXAMINATION TYPE: CT facial bones wo con DATE OF EXAM: 06/16/2021 COMPARISON: None HISTORY: Slipped on ice today, R jaw pain CT DLP: 674.8 mGycm Automated exposure control for dose reduction was used. Images obtained from the bottom of the mandible to the top of the frontal sinuses without contrast. The mandibular ring is intact. Temporomandibular joints are intact. Zygomatic arches appear normal. T he maxilla is intact. There is no evidence of orbital blowout fracture. There is no retro-orbital mas s. There is fairly normal aeration of the paranasal sinuses. There is normal aeration of the mastoid sinuses. Nasal bone appears normal. Parotid glands are symmetric. Submandibular salivary glands are s ymmetric. IMPRESSION: Negative CT scan of the facial bones. No evidence of traumatic injury.
== END 2021-06-16 20:06 | disposition home or self-care (01) ==
LOC: EC 17:29
DX: S00.83XA Contusion of other part of head, initial encounter (principal); S03.43XA Sprain of jaw, bilateral, initial encounter; S00.03XA Contusion of scalp, initial encounter; W00.0XXA Fall on same level due to ice and snow, initial encounter
CPT/HCPCS: 70486; 99284

== ENCOUNTER 2022-01-16 17:57 | Emergency (ER) | payer BC ==
[2022-01-16 18:03] VITALS: TEMP 98.1
[2022-01-16] MEDS ORDERED: DILTIAZEM DRIP BOLUS FROM BAG 1 MG SOLN IV ONE (18:23)
[2022-01-16] MEDS ORDERED: SODIUM CHLORIDE 0.9% 1,000 ML IV STA (18:23)
[2022-01-16] MEDS ORDERED: DILTIAZEM 125 MG in SODIUM CHLORIDE 0.9% 100 ML IV SCH (18:30)
--- NOTE | 2022-01-16 18:30 | ED ---
General Adult HPI - General Chief complaint: Arrhythmia/Palpitations Stated complaint: High Heart Rate Time Seen by Provider: 01/16/22 18:06 Source: patient, RN notes reviewed Mode of arrival: ambulatory Limitations: no limitations - History of Present Illness Initial comments: Patient is a pleasant 51-year-old male presenting to the emergency department with concerns with palpitations. Onset of symptoms was around an hour and a half ago. Symptoms have been mild Yet persistent. Patient did check his apple watch with heart rate of 174. Patient did have similar symptoms once previously associated with atrial fibrillation and he did see cardiology for this. Patient had a couple other minimal episodes that he was not evaluated for. No chest pa in or dyspnea. - Related Data Previous Rx's Medication Instructions Recorded HYDROcodone/APAP 7.5-325MG [[place] 1 tab PO Q4H PRN 3 Days #18 tab 03/01/18 7.5-325] Ibuprofen [Motrin] 600 mg PO Q8HR PRN #30 tab 03/01/18 HYDROcodone/APAP 7.5-325MG [[place] 1 tab PO Q4H PRN 3 Days #18 tab 03/06/ 7.5-325] Cyclobenzaprine [Flexeril] 10 mg PO TID #30 tab 03/15/18 Allergies Allergy/AdvReac Type Severity Reaction Status Date / Time No Known Allergies Allergy Verified 01/16/22 18:03 Review of Systems ROS Statement: Those systems with pertinent positive or pertinent negative responses have been documented in the HPI. ROS Other: All systems not noted in ROS Statement are negative. Constitutional: Denies: fever Eyes: Denies: eye pain ENT: Denies: ear pain Respiratory: Denies: cough, dyspnea Cardiovascular: Reports: as per HPI, palpitations. Denies: chest pain Endocrine: Denies: fatigue Gastrointestinal: Denies: vomiting Genitourinary: Denies: dysuria Musculoskeletal: Denies: back pain Skin: Denies: rash Neurological: Denies: weakness Past Medical History Past Medical History: Atrial Fibrillation, Sleep Apnea/CPAP/BIPAP Additional Past Medical History / Comment(s): hernia History of Any Multi-Drug Resistant Organisms: None Reported Past Surgical History: Hernia Repair, Orthopedic Surgery Additional Past Surgical History / Comment(s): right knee scope Past Anesthesia/Blood Transfusion Reactions: No Reported Reaction Additional Past Anesthesia/Blood Transfusion Reaction / Comment(s): no hx blood transfusion Past Psychological History: No Psychological Hx Reported Smoking Status: Never smoker Past Alcohol Use History: Occasional Past Drug Use History: None Reported - Past Family History Mother Family Medical History: No Reported History Father Family Medical History: Cancer Additional Family Medical History / Comment(s): colon CA,. paternal grandfather CA General Exam Limitations: no limitations General appearance: alert, in no apparent distress Head exam: Present: normocephalic Eye exam: Present: normal appearance Neck exam: Present: normal inspection Respiratory exam: Present: normal lung sounds bilaterally Cardiovascular Exam: Present: tachycardia Expanded Peripheral pulses: 2+: Radial (R), Radial (L), Posterior Tibialis (R), Posterior Tibialis (L) GI/Abdominal exam: Present: soft. Absent: tenderness Extremities exam: Present: pedal edema (States chronic and unchanged). Absent: calf tenderness Neurological exam: Present: alert Psychiatric exam: Present: normal affect, normal mood Skin exam: Present: normal color Course Vital Signs 01/16/22 01/16/22 01/16/22 18:00 18:19 18:20 Temperature 98.1 F Pulse Rate 176 H 176 H 176 H Respiratory 18 18 17 Rate Blood Pressure 127/90 172/144 172/144 O2 Sat by Pulse 99 98 98 Oximetry 01/16/22 01/16/22 01/16/22 18:30 18:40 18:50 Temperature Pulse Rate 179 H 181 H 167 H Respiratory 20 16 16 Rate Blood Pressure 172/144 138/127 132/105 O2 Sat by Pulse 96 98 99 Oximetry 01/16/22 01/16/22 19:00 19:28 Temperature Pulse Rate 92 90 Respiratory 20 18 Rate Blood Pressure 111/91 117/87 O2 Sat by Pulse 97 Oximetry - Reevaluation(s) Reevaluation #1: 01/16/22 19:15 The second EKG shows SVT rate 170. QRS 116. QT 269. QTC 361. Left axis. Incomplete right bundle-branch block. Nonspecific ST-T. 01/16/22 19:15 EKG #3 shows sinus rhythm 97. SC 1:30. QRS 99. QT 336. QTc 390. Left axis. Incomplete right bundle-branch block. No acute ST change. EKG Findings - EKG Comments: EKG Findings:: No complex tachycardia with rate of 159. QRS 119. QT 276. QTc 365. Left axis. Incomplete right bundle branch block. Borderline lateral ST depression. Procedures - Procedures Initial comment: Patient cardioverted with adenosine 6 mg without complication. Medical Decision Making - Medical Decision Making Patient reevaluated and remained symptom-free. Patient and family updated - Lab Data Result diagrams: 01/16/22 18:31 01/16/22 18:31 Lab Results 01/16/22 01/16/22 01/16/22 Range/Units 18:31 18:31 18:31 WBC 7.0 (3.8-10.6) k/uL RBC 4.99 (4.30-5.90) m/uL Hgb 15.2 (13.0-17.5) gm/dL Hct 44.2 (39.0-53.0) % MCV 88.7 (80.0-100.0) fL MCH 30.5 (25.0-35.0) pg MCHC 34.4 (31.0-37.0) g/dL RDW 13.0 (11.5-15.5) % Plt Count 257 (150-450) k/uL MPV 8.1 Neutrophils % 58 % Lymphocytes % 31 % Monocytes % 6 % Eosinophils % 1 % Basophils % 1 % Neutrophils # 4.1 (1.3-7.7) k/uL Lymphocytes # 2.2 (1.0-4.8) k/uL Monocytes # 0.5 (0-1.0) k/uL Eosinophils # 0.1 (0-0.7) k/uL Basophils # 0.0 (0-0.2) k/uL PT (9.0-12.0) sec INR (<1.2) APTT (22.0-30.0) sec Sodium 139 (137-145) mmol/L Potassium 4.3 (3.5-5.1) mmol/L Chloride 106 (98-107) mmol/L Carbon Dioxide 23 (22-30) mmol/L Anion Gap 10 mmol/L BUN 14 (9-20) mg/dL Creatinine 0.82 (0.66-1.25) mg/dL Est GFR (CKD-EPI)AfAm >90 (>60 ml/min/1.73 sqM) Est GFR (CKD-EPI)NonAf >90 (>60 ml/min/1.73 sqM) Glucose 118 H (74-99) mg/dL Calcium 8.9 (8.4-10.2) mg/dL Magnesium 2.0 (1.6-2.3) mg/dL Total Bilirubin 0.6 (0.2-1.3) mg/dL AST 31 (17-59) U/L ALT 34 (4-49) U/L Alkaline Phosphatase 63 (38-126) U/L Troponin I <0.012 (0.000-0.034) ng/mL Total Protein 6.8 (6.3-8.2) g/dL Albumin 4.2 (3.5-5.0) g/dL TSH 1.610 (0.465-4.680) mIU/L 01/16/22 Range/Units 18:48 WBC (3.8-10.6) k/uL RBC (4.30-5.90) m/uL Hgb (13.0-17.5) gm/dL Hct (39.0-53.0) % MCV (80.0-100.0) fL MCH (25.0-35.0) pg MCHC (31.0-37.0) g/dL RDW (11.5-15.5) % Plt Count (150-450) k/uL MPV Neutrophils % % Lymphocytes % % Monocytes % % Eosinophils % % Basophils % % Neutrophils # (1.3-7.7) k/uL Lymphocytes # (1.0-4.8) k/uL Monocytes # (0-1.0) k/uL Eosinophils # (0-0.7) k/uL Basophils # (0-0.2) k/uL PT 9.6 (9.0-12.0) sec INR 0.9 (<1.2) APTT 20.2 L (22.0-30.0) sec Sodium (137-145) mmol/L Potassium (3.5-5.1) mmol/L Chloride (98-107) mmol/L Carbon Dioxide (22-30) mmol/L Anion Gap mmol/L BUN (9-20) mg/dL Creatinine (0.66-1.25) mg/dL Est GFR (CKD-EPI)AfAm (>60 ml/min/1.73 sqM) Est GFR (CKD-EPI)NonAf (>60 ml/min/1.73 sqM) Glucose (74-99) mg/dL Calcium (8.4-10.2) mg/dL Magnesium (1.6-2.3) mg/dL Total Bilirubin (0.2-1.3) mg/dL AST (17-59) U/L ALT (4-49) U/L Alkaline Phosphatase (38-126) U/L Troponin I (0.000-0.034) ng/mL Total Protein (6.3-8.2) g/dL Albumin (3.5-5.0) g/dL TSH (0.465-4.680) mIU/L - Radiology Data Radiology results: image reviewed (Chest x-ray reveals no acute abnormality) Disposition Clinical Impression: Supraventricular tachycardia Disposition: HOME SELF-CARE Condition: Stable Instructions (If sedation given, give patient instructions): Supraventricular Tachycardia (ED) Additional Instructions: Please do follow-up to primary care physician as well as auto research engineer in the next couple days for recheck. Return for increased heart rate, chest pain or shortness of breath, worsening symptoms or any other concerns. Is patient prescribed a controlled substance at d/c from ED?: No Referrals: Osorio Cotto MD [Primary Care Provider] - 1-2 days Daryl Garcia MD [STAFF PHYSICIAN] - 1-2 days Time of Disposition: 20:28
[2022-01-16 18:39] LABS: Basophils % (A) 1 %; Eosinophils # (A) 0.1 k/uL (0-0.7); Eosinophils % (A) 1 %; HCT 44.2 % (39.0-53.0); HGB 15.2 gm/dL (13.0-17.5); Lymphocytes # (A) 2.2 k/uL (1.0-4.8); Lymphocytes % (A) 31 %; MCH 30.5 pg (25.0-35.0); MCHC 34.4 g/dL (31.0-37.0); MCV 88.7 fL (80.0-100.0); Mean Platelet Volume 8.1; Monocytes # (A) 0.5 k/uL (0-1.0); Monocytes % (A) 6 %; Neutrophils # (A) 4.1 k/uL (1.3-7.7); Neutrophils % (A) 58 %; Platelet Count 257 k/uL (150-450); RBC 4.99 m/uL (4.30-5.90)
--- NOTE | 2022-01-16 18:48 | XR ---
EXAMINATION TYPE: XR chest 1V portable DATE OF EXAM: 01/16/2022 COMPARISON: NONE HISTORY: Dysrhythmia TECHNIQUE: Single view FINDINGS: Heart and mediastinum are normal. Lungs are clear. Diaphragm is normal. Bony thorax is inta ct. There are chest leads. IMPRESSION: Normal chest. Normal heart.
[2022-01-16] MEDS ORDERED: ADENOSINE 3 MG/ML 2 ML VIAL IVP STA (19:00)
[2022-01-16 19:16] LABS: INR 0.9 (<1.2); Partial Thromboplastin Time 20.2 sec (22.0-30.0); Prothrombin Time 9.6 sec (9.0-12.0)
[2022-01-16 19:29] VITALS: RESP 18
[2022-01-16 19:51] LABS: ALT 34 U/L (4-49); AST 31 U/L (17-59); African American GFR (CKD) >90 (>60 ml/min/1.73 sqM); Albumin 4.2 g/dL (3.5-5.0); Alkaline Phosphatase 63 U/L (38-126); Anion Gap 10 mmol/L; Blood Urea Nitrogen 14 mg/dL (9-20); Calcium 8.9 mg/dL (8.4-10.2); Carbon Dioxide 23 mmol/L (22-30); Chloride 106 mmol/L (98-107); Glucose 118 mg/dL (74-99); Non-African American GFR(CKD) >90 (>60 ml/min/1.73 sqM); Potassium 4.3 mmol/L (3.5-5.1); Sodium 139 mmol/L (137-145); Total Bilirubin 0.6 mg/dL (0.2-1.3); Total Protein 6.8 g/dL (6.3-8.2)
[2022-01-16 21:07] VITALS: BP 156/98; PULSE 87
== END 2022-01-16 20:36 | disposition home or self-care (01) ==
LOC: EC 17:57
DX: I47.1 Supraventricular tachycardia (principal); I48.91 Unspecified atrial fibrillation; G47.30 Sleep apnea, unspecified
CPT/HCPCS: 36415; 80053; 83735; 84443; 84484; 85025; 85610; 85730; 71045; 99285; 96374; 96361; J0153

== ENCOUNTER → 2023-07-19 | Outpatient (CLI) | payer BC ==
[2023-07-19 18:59] LABS: HGB 14.4 g/dL (13.0-17.0); MCH 29.2 pg (27.0-32.0); MCV 91.3 FL (80.0-97.0); Mean Platelet Volume 9.9 FL (9.5-12.2); NRBC Per 100 WBC 0 X 10*3/uL (0.00-0.01); Platelet Count 275 X 10*3/uL (140-440); RBC 4.93 X 10*6/uL (4.40-5.60); RDW 12.7 % (11.5-14.5)
[2023-07-19 19:35] LABS: Blood Urea Nitrogen 10.7 mg/dL (9.0-27.0); Carbon Dioxide 28.5 mmol/L (21.6-31.8); Chloride 106 mmol/L (96-109); Potassium 4.7 mmol/L (3.5-5.5); Sodium 143 mmol/L (135-145)
== END | disposition home or self-care (01) ==
LOC: LABPAT 15:26
PROVIDERS: ATTEND Internal Medicine
DX: Z01.812 Encounter for preprocedural laboratory examination (principal); R06.02 Shortness of breath
CPT/HCPCS: 36415; 80051; 82565; 84520; 85027

== ENCOUNTER 2023-07-25 08:51 | Day surgery (SDC) | payer BC ==
[2023-07-20 13:07] VITALS: BMI 45.8
[~2023-07-25 08:51] MED LIST changes: +ALPRAZolam 0.25 MG TAB PO PRN; -BUPIVACAIN-EPI 0.25%-1:200,000 30 ML VIAL SQ ONE; -DEXAMETHASONE SOD PHOSPHATE 10 MG/ML 1 ML VIAL IV ONE; -GLYCOPYRROLATE 0.2 MG/ML 2 ML VIAL ONE; +HEPARIN SODIUM,PORCINE (1 ML) 2,500 UNIT in SODIUM CHLORIDE 0.9% 250 ML IRRIGATION PRN; +HEPARIN SODIUM,PORCINE 10,000 UNIT in SODIUM CHLORIDE 0.9% 1,000 ML IRRIGATION PRN; -HEPARIN SODIUM,PORCINE 5,000 UNIT/ML 1 ML VIAL SQ ONE; -HYDROcodone/APAP 7.5-325MG 1 EACH TAB PO ONE; -HYDROmorphone (PF) 1 MG/ML ONE; -KETOROLAC 30 MG/ML 1 ML VIAL ONE; -LACTATED RINGERS 1,000 ML IV ONE; -LIDOCAINE 1% 20 ML VIAL (10MG/ML) FOR IV START INTRADERMA PRN; -LIDOCAINE 1% INJ 10MG/ML (20 ML MDV) ONE; -MIDAZOLAM 2 MG/2 ML VIAL IV PRN; -MIDAZOLAM 2 MG/2 ML VIAL ONE; -NEOSTIGMINE 1 MG/ML 10 ML VIAL ONE; +NITROGLYCERIN SL TABS 0.4 MG TAB SUBLINGUAL PRN; -ONDANSETRON 4 MG/2 ML VIAL IVP ONE; -PROPOFOL 10 MG/ML 20 ML VIAL IV ONE; -ROCURONIUM BROMIDE 10 MG/ML 10 ML VIAL IV ONE; -ROPIVACAINE 5 MG/ML 30 ML VIAL ONE; -SCOPOLAMINE 1.5MG/72HR PATCH TRANSDERM ONE; +SODIUM CHLORIDE 0.9% 1,000 ML in EMPTY BAG 1 BAG IV SCH; -SUCCINYLCHOLINE CHLORIDE VIAL 200 MG/10 ML VIAL IV ONE; -fentaNYL (PF) 50 MCG/ML 2 ML AMP ONE
[2023-07-25] MEDS: SODIUM CHLORIDE 0.9% 1,000 ML IV ONE (09:06)
[2023-07-25] MEDS: ASPIRIN 325 MG TAB PO STA (09:08)
[2023-07-25] MEDS: ALPRAZolam 0.5 MG TAB PO PRN (09:09)
[2023-07-25 09:49] VITALS: TEMP 99
[2023-07-25] MEDS ORDERED: HEPARIN SODIUM 1,000 UN/ML (10ML VL) ONE (10:02)
[2023-07-25] MEDS ORDERED: fentaNYL (PF) 50 MCG/ML 2 ML AMP ONE (10:03)
[2023-07-25] MEDS ORDERED: VERAPAMIL 2.5 MG/ML 2 ML AMP ONE (10:03)
[2023-07-25] MEDS ORDERED: LIDOCAINE 1% INJ 10MG/ML (20 ML MDV) ONE (10:03)
[2023-07-25] MEDS: LIDOCAINE 2% (PF) 20 MG/ML 5 ML VIAL SQ ONE (10:27)
[2023-07-25] MEDS: fentaNYL (PF) 50 MCG/1 ML VIAL IVP ONE (10:29)
[2023-07-25] MEDS: MIDAZOLAM 2 MG/2 ML VIAL IVP ONE (10:29)
[2023-07-25] MEDS: HEPARIN SODIUM 1,000 UN/ML (10ML VL) IVP ONE (10:31)
[2023-07-25] MEDS: IOPAMIDOL-370 100ML BTL INTRATHECA ONE (10:42)
[2023-07-25] MEDS: SODIUM CHLORIDE 0.9% 500 ML 500 ML IV ONE (13:00)
[2023-07-25 16:01] VITALS: BP 141/63; PULSE 58; RESP 16
--- NOTE | 2023-07-25 22:30 | P.CARDCATH ---
Description of Procedure: PROCEDURES PERFORMED: Left heart catheterization, bilateral coronary angiography, ultrasound guided arterial access INDICATION: Abnormal stress test CONSENT:I have discussed the risks, benefits and alternative therapies for the above-mentioned procedure and for both sedation/analgesia as well as necessary blood product administration, if indicated, as they pertain to this patient. The patient has indicated understanding and acceptance of the risks and procedures discussed. PROCEDURE: After the risks, benefits and alternatives of the above mentioned procedure explained in detail with the patient, informed consent was obtained. Patient was taken to the catheterization lab and prepped and draped in usual fashion. Ultrasound guidance was used to assess for arterial access. 1% lidocaine was used to anesthetize the right radial artery. A 6-Angolan sheath was placed in the right radial artery using modified Seldinger technique and ultrasound guidance. Left coronary angiography was performed with a 5-[place] JL 3.5 catheter and right coronary angiography was performed with a 5-[place] AR2 catheter in various views. A 5-[place] AR2 catheter was inserted into the left ventricle and pressure measurements were obtained. The right radial sheath was removed and a TR band was placed with hemostasis achieved. The patient to lerated the procedure well. Patient was transported back to the post catheterization holding area in stable condition. Conscious Sedation: Patient was monitored under the direct supervision of myself for conscious sedation using Versed and fentanyl for a total duration of 10 minutes HEMODYNAMICS: Ao: 142/78 LV: 147/ 15, LVEDP 29 SELECTIVE CORONARY ARTERIOGRAPHY: LEFT MAIN: The left main is a large caliber vessel which bifurcates into the LAD and circumflex. There is no significant stenosis. LEFT ANTERIOR DESCENDING CORONARY ARTERY: LAD is a large caliber vessel which wraps around to the apex. There is no significant stenosis. LEFT CIRCUMFLEX CORONARY ARTERY: Left circumflex is a moderate caliber vessel without significant stenosis. RIGHT CORONARY ARTERY: The right coronary artery is a large caliber vessel which gives off a PDA and PLV branch and is the dominant vessel. There is no significant stenosis. FINAL IMPRESSION: 1. Normal coronary arteries as described above. 2. Elevated left sided filling pressures PLAN: 1. Aggressive risk factor modification per most recent ACC/AHA guidelines. 2. Follow-up in the office in 1-2 weeks.
== END 2023-07-25 14:25 | disposition home or self-care (01) ==
LOC: CATHCVL 08:51
PROVIDERS: ATTEND Internal Medicine
DX: R94.39 Abnormal result of other cardiovascular function study (principal)
CPT/HCPCS: 93458; 76937; 99152; C1769; C1894; J2250; J1644; Q9967; J2001; J3010

== ENCOUNTER → 2023-08-02 | Outpatient (CLI) | payer BC ==
--- NOTE | 2023-08-02 16:44 | P.PROGSL ---
Subjective DATE: 08/02/2023 FOLLOW UP VISIT. Patient returned to sleep center for follow-up visit for treatment of obstructive sleep apnea hypopnea syndrome. In October 2020 patient was diagnosed with severe obstructive sleep apnea hypopnea syndrome by home sleep apnea test at that time apnea-hypopnea index was 57.5 with oxygen desaturation to 76%. Patient was started on treatment with CPAP but has difficulties with the CPAP equipment and returned his CPAP unit. Patient continued to have problems with sleep. He snores and wakes up multiple times.. . [place] sleepiness scale is significantly increased to 14. MEDICATIONS: Please see below During physical exam: GENERAL: A pleasant patient without any distress. VITAL SIGNS: Please see below, weight 344.0 pounds. HEENT: PERRLA, EOMI. NECK: Supple. No JVD. LUNGS: Clear to percussion and to auscultation. Good air exchange. No wheezing or rhonchi. HEART: S1, S2 regular. ABDOMEN: Soft and nontender. EXTREMITIES: No clubbing or cyanosis. GRANITE CHIP TERRAZZO FINISHER: Awake, alert, and oriented x3. No focal deficit. Impressions: 1. Loud snoring, multiple awakenings from sleep, sleepiness, extremely low position of soft palate Mallampati 4. Obstructive sleep apnea hypopnea syndrome. 2. Obesity. 3. History of cardiac arrhythmia, possibly SVT. 4. Status post right knee surgery. 5. Status post inguinal hernia repair. Plan: 1. Home sleep apnea test to confirm obstructive sleep apnea hypopnea syndrome at the present time. 2. Sleep hygiene with regular time in bed for at least 8 hours. 3. Following plan after reading sleep study 4. Precautions related to driving. No driving if feel any sleepiness. Patient is aware about civil and criminal liability for unsafe driving, promised to follow recommendations. Thank you very much for allowing me to participate in the management of your patient. Darrian Campos MD, PhD, FAASM. Diplomat of [employer], Sleep Medicine Board by [employer] Measurement Psychologist of [facility] [place] Objective - Vital Signs Vital Signs: Vital Signs Temp 98.4 F 08/02/23 16:21 Pulse 72 08/02/23 16:21 Resp 18 08/02/23 16:21 BP 137/79 08/02/23 16:21 Pulse Ox 94 L 08/02/23 16:21 FiO2 Intake & Output 08/01/23 08/02/23 08/02/23 18:59 06:59 18:59 Weight 156.036 kg Home Medications: Home Medications Medication Instructions Recorded Confirmed Type Aspirin EC [Ecotrin Low Dose] 81 mg PO DAILY 07/20/23 07/25/23 History Metoprolol Succinate (ER) [Toprol 12.5 mg PO DAILY 07/20/23 07/25/23 History Xl]
[2023-08-02 17:00] VITALS: BP 137/79; PULSE 72; RESP 18; TEMP 98.4
== END ==
LOC: 3 N SLEEP 15:47
PROVIDERS: ATTEND Internal Medicine
DX: G47.33 Obstructive sleep apnea (adult) (pediatric) (principal); R06.83 Snoring; E66.9 Obesity, unspecified; I34.9 Nonrheumatic mitral valve disorder, unspecified; Z98.890 Other specified postprocedural states; K46.9 Unspecified abdominal hernia without obstruction or gangrene; F12.90 Cannabis use, unspecified, uncomplicated
CPT/HCPCS: 99212

== ENCOUNTER → 2024-09-05 | Outpatient (CLI) | payer BC ==
--- NOTE | 2024-09-11 14:51 | P.PCN ---
Description of Procedure: CLINICAL: A home sleep apnea test has been done for confirmation of possible obstructive sleep apnea-hypopnea syndrome. DESCRIPTION OF PROCEDURE: RESULTS: Recording time was 6 hours 45 minutes. Evaluation time was 6 hours 33 minutes. Evaluation time is sufficient for making conclusion about results of the test. Raw data of sleep recording has been reviewed and is adequate. Respiratory channel showed 199 apneas and 117 hypopneas. Apnea-hypopnea index was 48.1 per hour. Pulse rate in the range between minimum 43, maximum 109, average 58 by computer calculation. Lowest desaturation was 73%. IMPRESSION: 1. Extremely Severe obstructive Sleep Apnea Hypopnea Syndrome with severe oxygen desaturation. 2. Obesity, BMI 45.9 Please see other impressions from consultation. PLAN: 1. The patient should have PAP titration for correction of respiratory abnormallities during sleep. 2. Following plan after reading PAP titration. 3. Watching and losing weight. 4. Sleep hygiene with regular time in bed for at least 8 hours. 5. No driving if feeling any sleepiness. Thank you very much for allowing me to participate in the management of your patient. Sincerely, Darrian Campos MD, PhD, FAASM Diplomat of [place] [employer] Sleep Medicine Board of [place] [employer] Nursing Consultant of [facility] [place] cc: Howie Cotto MD
== END ==
LOC: 3 N SLEEP 17:01
PROVIDERS: ATTEND Internal Medicine
DX: G47.33 Obstructive sleep apnea (adult) (pediatric) (principal); E66.9 Obesity, unspecified; F12.90 Cannabis use, unspecified, uncomplicated; Z68.42 Body mass index [BMI] 45.0-49.9, adult